=== PATIENT | female | born 1955 | race Caucasian/White ===

== ENCOUNTER 2017-03-30 09:13 | Day surgery (SDC) | payer OTHER ==
[~2017-03-30 09:13] MED LIST: Bupivacaine 0.5% 50 ML MDV ONE; Lidocaine 1% with EPINEPHrine 1:100,000 50 ML MDV ONE
[2017-03-30] MEDS ORDERED: Lactated Ringers 1,000 ML IV SCH (10:00)
[2017-03-30] MEDS ORDERED: Midazolam 1 MG/ML 2 ML SDV ONE (10:19)
[2017-03-30] MEDS ORDERED: Propofol 200 MG/20 ML SDV ONE (10:19)
[2017-03-30] MEDS ORDERED: fentaNYL 100 MCG/2 ML SDV ONE (10:19)
[2017-03-30] MEDS ORDERED: ceFAZolin 2 GM in Sodium Chloride 0.9% 50 ML IV ONE (10:30)
[2017-03-30] MEDS ORDERED: Dexamethasone 4 MG/ML SDV ONE (11:08)
[2017-03-30] MEDS ORDERED: Ondansetron 4 MG/2 ML SDV ONE (11:08)
[2017-03-30] MEDS ORDERED: Acetaminophen/HYDROcodone 325-5 MG Tab PO PRN (12:15)
[2017-03-30 13:29] VITALS: BP 142/92
[2017-03-30] MEDS ORDERED: Ondansetron 4 MG/2 ML SDV IVPUSH ONE (13:30)
--- NOTE | 2017-04-08 11:53 | OR ---
DATE OF PROCEDURE: 03/30/2017 PREOPERATIVE DIAGNOSIS: Left inguinal hernia, reducible. POSTOPERATIVE DIAGNOSIS: Direct left inguinal hernia, reducible. PROCEDURE: Repair of left inguinal hernia with an extra-large mesh plug and patch. ANESTHESIA: IV anesthesia with monitored anesthesia care. INDICATIONS: This 62-year-old white female has a reducible mass in her left groin consistent with a reducible left inguinal hernia. She is admitted for repair of this hernia. I counseled her for the procedure including risks and alternatives, and she gave her informed consent to proceed. DESCRIPTION OF PROCEDURE: After adequate IV anesthesia was obtained, the patient's lower abdomen, groin, and genitalia were prepped and draped in the usual sterile fashion. Time-out was held. Lidocaine 1% with 0.5% Marcaine with epinephrine was infiltrated about the left groin. A left groin incision was made 2 cm superior and medial to the inguinal ligament. This was carried deep using Bovie cautery to the external oblique. The external oblique was opened parallel to the course of its fibers to reveal that the inguinal floor was essentially gone consistent with a large direct left inguinal hernia. This was dissected free and reduced back into the abdominal cavity. An extra-large mesh plug manufactured by [employer] was obtained. The plug was passed down through the hernia defect under the fascia and anchored to the underside of the fascia with horizontal mattress stitches of 3-0 Vicryl. The onlay patch was obtained and was placed over the inguinal floor. The opening in the patch was excised, it was then anchored to the floor with interrupted 3-0 Vicryl suture. The external oblique was then closed with a running stitch of 3-0 Vicryl, interrupted 3-0 Vicryl stitch were placed to approximate Mena's fascia, 4-0 Vicryl using a subcuticular stitch was placed to approximate the skin. Dermabond was applied. The patient tolerated the procedure well and was brought from the operating room in good condition. Rolando García MD /[id number] [email or web address]
== END 2017-03-30 14:00 | disposition home or self-care (01) ==
LOC: JP.SDS 09:13
PROVIDERS: ATTEND Surgery
DX: K40.90 Unilateral inguinal hernia, without obstruction or gangrene, not specified as recurrent (principal)
CPT/HCPCS: 49505; A9270; C1781; J0690; J1100; J2250; J2405; J2704; J3010; J7050; J7120

== ENCOUNTER 2021-10-07 05:24 | Inpatient (IN) | payer MEDICARE, OTHER ==
[2021-10-07] MEDS ORDERED: Lactated Ringers 1,000 ML IV SCH (06:00)
[2021-10-07] MEDS: Nozin Nasal Sanitizer NASBOTH SCH ×2 (06:16→20:30)
[2021-10-07] MEDS ORDERED: Povidone-Iodine 10% Soln 118.25 ML Bottle ONE (06:45)
[2021-10-07] MEDS ORDERED: ceFAZolin 2 GM in Premix Bag 1 BAG IV ONE (07:30)
[2021-10-07] MEDS ORDERED: fentaNYL 100 MCG/2 ML SDV ONE ×2 (07:38→09:18)
[2021-10-07] MEDS ORDERED: Propofol 200 MG/20 ML SDV ONE ×2 (07:38→08:33)
[2021-10-07] MEDS ORDERED: Midazolam 1 MG/ML 2 ML SDV ONE (07:38)
[2021-10-07] MEDS ORDERED: Lactated Ringers 1,000 ML ONE (08:22)
[2021-10-07] MEDS ORDERED: traMADol 50 MG Tab PO PRN (09:41)
[2021-10-07] MEDS ORDERED: Morphine 2 MG/ML SYRINGE IVPUSH PRN (09:41)
[2021-10-07] MEDS: Ondansetron 4 MG/2 ML SDV IVPUSH PRN (10:42)
[2021-10-07] MEDS: Acetaminophen/HYDROcodone 325-5 MG Tab PO PRN ×2 (11:17→15:59)
[2021-10-07] MEDS: Acetaminophen 325 MG Tab PO SCH ×3 (11:17→23:16)
[2021-10-07] MEDS: Ketorolac 30 MG/ML SDV IVPUSH PRN ×2 (11:18→20:30)
[2021-10-07] MEDS ORDERED: Scopolamine 1.5 MG Transdermal Patch TOP SCH (12:00)
[2021-10-07] MEDS: Nicotine 14 MG/24 Hr Patch TRDERM SCH (12:10)
[2021-10-07] MEDS: Levothyroxine 25 MCG Tab PO SCH (12:11)
[2021-10-07] MEDS: Sertraline 50 MG Tab PO SCH (12:11)
[2021-10-07] MEDS: Sodium Chloride 0.9% 1,000 ML IV SCH ×2 (12:27→20:29)
[2021-10-07] MEDS: oxyCODONE 5 MG Tab PO PRN (12:45)
--- NOTE | 2021-10-07 13:36 | CR ---
Knee 1V or 2V Lt CLINICAL HISTORY: Previous TKA FINDINGS: Patient has had recent total knee arthroplasty. Components appear well seated. There is intra-articular and subcutaneous air.
[2021-10-07] MEDS: ceFAZolin 1 GM in Premix Bag 1 BAG IV SCH ×2 (14:38→23:13)
[2021-10-07] MEDS: Docusate Sodium 100 MG Cap PO SCH (20:24)
[2021-10-07] MEDS: atorvaSTATin 20 MG Tab PO SCH (20:30)
[2021-10-07] MEDS: ALPRAZolam 0.5 MG Tab PO PRN (20:30)
[2021-10-07] MEDS ORDERED: Nozin Nasal Sanitizer NASBOTH SCH (21:00)
[2021-10-08] MEDS: Ondansetron 4 MG/2 ML SDV IVPUSH PRN (02:49)
[2021-10-08] MEDS: Acetaminophen/HYDROcodone 325-5 MG Tab PO PRN (02:49)
[2021-10-08] MEDS: Acetaminophen 325 MG Tab PO SCH ×4 (05:59→22:54)
[2021-10-08] MEDS: ceFAZolin 1 GM in Premix Bag 1 BAG IV SCH (05:59)
[2021-10-08] MEDS: Ketorolac 30 MG/ML SDV IVPUSH PRN (06:03)
[2021-10-08] MEDS: Levothyroxine 25 MCG Tab PO SCH (07:38)
[2021-10-08] MEDS: oxyCODONE 5 MG Tab PO PRN ×4 (07:57→22:54)
[2021-10-08] MEDS: Nozin Nasal Sanitizer NASBOTH SCH ×2 (08:03→20:34)
[2021-10-08] MEDS: Nicotine 14 MG/24 Hr Patch TRDERM SCH (08:03)
[2021-10-08] MEDS: Sertraline 50 MG Tab PO SCH (08:04)
[2021-10-08] MEDS: Docusate Sodium 100 MG Cap PO SCH ×2 (08:04→20:53)
[2021-10-08] MEDS: SCOPOLAMINE PATCH CHECK TOP SCH (08:04)
[2021-10-08] MEDS: Enoxaparin 30 MG/0.3 ML Syringe SUBCUT SCH (08:04)
[2021-10-08] MEDS ORDERED: Ondansetron 4 MG Tab.DIS PO PRN (08:18)
[2021-10-08] MEDS ORDERED: Acetaminophen 500 MG Tab PO PRN (08:20)
--- NOTE | 2021-10-08 08:31 | PCM.SURGPN ---
- General Info Date of Service: 10/08/21 Date of Surgery/Procedure: 10/07/21 POD#: 1 Post-Op Diagnosis: left knee meniscus tear and osteoarthritis Admission Diagnosis/Problem: Knee joint operation Functional Status: Reports: Pain Controlled, Tolerating Diet, Ambulating (with FWW x1 assist ), Incentive Spirometry - Review of Systems General: Denies: Fever, Fatigue, Chills HEENT: Denies: Visual Changes Pulmonary: Denies: Shortness of Breath Cardiovascular: Denies: Chest Pain, Dyspnea on Exertion, Lightheadedness Gastrointestinal: Reports: Nausea. Denies: Vomiting Musculoskeletal: Reports: Leg Pain (left ), Joint Pain (left knee ), Joint Swelling (left knee ) Neurological: Reports: No Symptoms Psychiatric: Reports: No Symptoms - Patient Data Vitals - Most Recent: Last Vital Signs Temp 97.2 F 10/08/21 07:32 Pulse 70 10/08/21 07:32 Resp 16 10/08/21 07:32 BP 122/51 L 10/08/21 07:32 Pulse Ox 96 10/08/21 07:32 Weight - Most Recent: 142 lb I&O - Last 24 Hours: Intake & Output 10/07/21 10/08/21 10/08/21 22:59 06:59 14:59 Intake Total 1699 1320 100 Output Total 300 1000 275 Balance 1399 320 -175 Lab Results Last 24 Hrs: Laboratory Results - last 24 hr 10/08/21 Range/Units 05:30 WBC 8.5 (4.5-11.0) K/uL RBC 3.20 L (3.30-5.50) M/uL Hgb 9.8 L D (12.0-15.0) g/dL Hct 29.7 L (36.0-48.0) % MCV 93 (80-98) fL MCH 31 (27-31) pg MCHC 33 (32-36) % Plt Count 261 (150-400) K/uL Med Orders - Current: Current Medications Acetaminophen (Acetaminophen 325 Mg Tab) 650 mg PO Q6H [facility] Last Admin: 10/08/21 05:59 Dose: 650 mg Documented by: Acetaminophen (Acetaminophen 500 Mg Tab) 1,000 mg PO Q6H PRN PRN Reason: Breakthrough Pain Hydrocodone Bitart/Acetaminophen (Acetaminophen/Hydrocodone 325-5 Mg Tab) 1 tab PO Q4H PRN PRN Reason: Pain (moderate 4-6) Last Admin: 10/08/21 02:49 Dose: 1 tab Documented by: Alprazolam (Alprazolam 0.5 Mg Tab) 0.5 mg PO BID PRN PRN Reason: Anxiety Last Admin: 10/07/21 20:30 Dose: 0.5 mg Documented by: Atorvastatin Calcium (Atorvastatin 20 Mg Tab) 40 mg PO BEDTIME [facility] Last Admin: 10/07/21 20:30 Dose: 40 mg Documented by: Bandage/Support Products (Nozin Nasal Carpet Renovator) 1 applic NASBOTH BID [facility] Stop: 10/13/21 21:01 Last Admin: 10/08/21 08:03 Dose: 1 applic Documented by: Docusate Sodium (Docusate Sodium 100 Mg Cap) 100 mg PO BID [facility] Last Admin: 10/08/21 08:04 Dose: 100 mg Documented by: Enoxaparin Sodium (Enoxaparin 30 Mg/0.3 Ml Syringe) 30 mg SUBCUT DAILY [facility] Last Admin: 10/08/21 08:04 Dose: 30 mg Documented by: Sodium Chloride (Normal Saline) 1,000 mls @ 125 mls/hr IV ASDIRECTED [facility] Last Admin: 10/07/21 20:29 Dose: 125 mls/hr Documented by: Levothyroxine Sodium (Levothyroxine 25 Mcg Tab) 75 mcg PO ACBREAKFAST [facility] Last Admin: 10/08/21 07:38 Dose: 75 mcg Documented by: Miscellaneous Information (Remove Patch) 1 ea TRDERM ONETIME ONE Stop: 10/10/21 12:01 Nicotine (Nicotine 14 Mg/24 Hr Patch) 14 mg TRDERM DAILY [facility] Last Admin: 10/08/21 08:03 Dose: 14 mg Documented by: Scopolamine Patch (Check) 1 each TOP DAILY [facility] Stop: 10/10/21 10:00 Last Admin: 10/08/21 08:04 Dose: Not Given Documented by: Ondansetron HCl (Ondansetron 4 Mg Tab.Dis) 4 mg PO Q6H PRN PRN Reason: Nausea/Vomiting Oxycodone HCl (Oxycodone 5 Mg Tab) 5 mg PO Q4H PRN PRN Reason: Pain (severe 7-10) Last Admin: 10/08/21 07:57 Dose: 5 mg Documented by: Scopolamine (Scopolamine 1.5 Mg Transdermal Patch) 1.5 mg TOP Q72H [facility] Stop: 10/10/21 10:00 Last Admin: 10/07/21 12:10 Dose: 1.5 mg Documented by: Sertraline HCl (Sertraline 50 Mg Tab) 50 mg PO DAILY [facility] Last Admin: 10/08/21 08:04 Dose: 50 mg Documented by: Tramadol HCl (Tramadol 50 Mg Tab) 50 mg PO Q4H PRN PRN Reason: Pain (mild 1-3) Discontinued Medications Fentanyl (Fentanyl 100 Mcg/2 Ml Sdv) Confirm Administered Dose 100 mcg .ROUTE .STK-MED ONE Stop: 10/07/21 07:39 Fentanyl (Fentanyl 100 Mcg/2 Ml Sdv) Confirm Administered Dose 100 mcg .ROUTE .STK-MED ONE Stop: 10/07/21 09:19 Cefazolin Sodium/Dextrose 2 gm (/ Premix) 50 mls @ 100 mls/hr IV ONETIME ONE Stop: 10/07/21 07:59 Last Admin: 10/07/21 07:31 Dose: 100 mls/hr Documented by: Lactated Ringer's (Ringers, Lactated) 1,000 mls @ 75 mls/hr IV ASDIRECTED [facility] Last Admin: 10/07/21 07:14 Dose: 75 mls/hr Documented by: Lactated Ringer's (Ringers, Lactated) Confirm Administered Dose 1,000 mls @ as directed .ROUTE .STK-MED ONE Stop: 10/07/21 08:23 Cefazolin Sodium/Dextrose 1 gm (/ Premix) 50 mls @ 100 mls/hr IV Q8H [facility] Stop: 10/08/21 06:29 Last Admin: 10/08/21 05:59 Dose: 100 mls/hr Documented by: Ketorolac Tromethamine (Ketorolac 30 Mg/Ml Sdv) 15 mg IVPUSH Q8H PRN PRN Reason: Breakthrough Pain Stop: 10/12/21 09:42 Last Admin: 10/08/21 06:03 Dose: 15 mg Documented by: Midazolam HCl (Midazolam 1 Mg/Ml 2 Ml Sdv) Confirm Administered Dose 2 mg .ROUTE .STK-MED ONE Stop: 10/07/21 07:39 Morphine Sulfate (Morphine 2 Mg/Ml Syringe) 1 mg IVPUSH Q1H PRN PRN Reason: Breakthrough Pain Last Admin: 10/07/21 12:25 Dose: 1 mg Documented by: Ondansetron HCl (Ondansetron 4 Mg/2 Ml Sdv) 4 mg IVPUSH Q4H PRN PRN Reason: Nausea/Vomiting Last Admin: 10/08/21 02:49 Dose: 4 mg Documented by: Povidone Iodine (Povidone-Iodine 10% Soln 118.25 Ml Bottle) Confirm Administered Dose 1 ml .ROUTE .STK-MED ONE Stop: 10/07/21 06:46 Propofol (Propofol 200 Mg/20 Ml Sdv) Confirm Administered Dose 200 mg .ROUTE .STK-MED ONE Stop: 10/07/21 07:39 Propofol (Propofol 200 Mg/20 Ml Sdv) Confirm Administered Dose 200 mg .ROUTE .STK-MED ONE Stop: 10/07/21 08:34 Sertraline HCl (Sertraline 50 Mg Tab) 50 mg PO DAILY [facility] - Exam Wound/Incisions: Healing Well, Dressing Dry and Intact, No Drainage Quality Assessment: Urine Catheter, DVT Prophylaxis General: Alert, Oriented, Cooperative, No Acute Distress Extremities: Pedal Edema, Leg Pain (left ), Limited Range of Motion (due to left knee postoperative dressing and pain ). No: Yana's Sign Skin: Dry, Intact Neurological: No New Focal Deficit Psy/Mental Status: Alert, Normal Affect, Normal Mood Sepsis Event Note - Evaluation Sepsis Screening Result: No Definite Risk - Focused Exam Vital Signs: Vital Signs Temp Pulse Resp BP Pulse Ox 10/08/21 07:32 97.2 F 70 16 122/51 L 96 10/08/21 02:38 99.1 F 68 16 111/60 95 10/07/21 22:15 98.6 F 61 16 105/45 L 97 - Problem List & Annotations (1) Status post total left knee replacement SNOMED Code(s): 5972498206067, 9947281823274 Code(s): Z96.652 - PRESENCE OF LEFT ARTIFICIAL KNEE JOINT Status: Acute Current Visit: Yes (2) Postoperative anemia SNOMED Code(s): 487395508, 650433220 Code(s): D64.9 - ANEMIA, UNSPECIFIED Status: Acute Current Visit: Yes - Problem List Review Problem List Initiated/Reviewed/Updated: Yes - My Orders Last 24 Hours: Active Orders 24 hr Category Date Time Status Admission Status [Patient Status] [ADT] Routine ADT 10/08/21 08:21 Ordered Ambulate [RC] QID Care 10/07/21 09:41 Active Antiembolic Devices [RC] .Routine Care 10/07/21 09:41 Active Head of Bed Elevation [RC] ASDIRECTED Care 10/07/21 09:41 Active Intake and Output [RC] QSHIFT Care 10/07/21 09:41 Active May Shower [RC] ASDIRECTED Care 10/07/21 09:41 Active Neurovascular Check [RC] Q4H Care 10/07/21 09:41 Active Oxygen Therapy [RC] PRN Care 10/07/21 09:41 Active Pneumonia Education [RC] UPON Care 10/07/21 09:41 Active RT Incentive Spirometry [RC] Q1HWA Care 10/07/21 09:41 Active Up to Chair [RC] QID Care 10/07/21 09:41 Active Up to Chair [RC] QID Care 10/07/21 09:41 Active VTE/DVT Education [RC] Click to Edit Care 10/07/21 09:41 Active Vital Signs [RC] PER UNIT ROUTINE Care 10/07/21 09:41 Active Wound Care [RC] Q12H Care 10/07/21 09:41 Active Consult to Case Management/Brass [employer] Instrument Maker [CONS] Cons 10/07/21 09:41 Active Routine OT Evaluation and Treatment [CONS] Routine Cons 10/07/21 09:41 Active PT Evaluation and Treatment [CONS] Routine Cons 10/07/21 09:41 Active PT Evaluation and Treatment [CONS] Routine Cons 10/07/21 09:41 Active Regular Diet [DIET] Diet 10/07/21 Breakfast Active ALPRAZolam [Xanax] Med 10/07/21 09:47 Active 0.5 mg PO BID PRN Acetaminophen [TylenoL] Med 10/07/21 11:00 Active 650 mg PO Q6H Acetaminophen [Tylenol Extra Strength] Med 10/08/21 08:20 Ordered 1,000 mg PO Q6H PRN Acetaminophen/HYDROcodone [[place] 325-5 MG] Med 10/07/21 09:46 Active 1 tab PO Q4H PRN Docusate Sodium [Colace] Med 10/07/21 21:00 Active 100 mg PO BID Enoxaparin [Lovenox] Med 10/08/21 09:00 Active 30 mg SUBCUT DAILY Levothyroxine Med 10/07/21 12:00 Active 75 mcg PO ACBREAKFAST Nicotine [Habitrol] Med 10/07/21 12:00 Active 14 mg TRDERM DAILY Non-Formulary Medication [NF Drug] Med 10/08/21 09:00 Active 1 each TOP DAILY Ondansetron [Zofran ODT] Med 10/08/21 08:18 Ordered 4 mg PO Q6H PRN Remove Patch Med 10/10/21 12:00 Once 1 ea TRDERM ONETIME ONE Scopolamine [Transderm-Scop] Med 10/07/21 12:00 Active 1.5 mg TOP Q72H Sertraline [Zoloft] Med 10/07/21 09:00 Active 50 mg PO DAILY Sodium Chloride 0.9% [Normal Saline] 1,000 ml Med 10/07/21 09:45 Active IV ASDIRECTED atorvaSTATin [Lipitor] Med 10/07/21 21:00 Active 40 mg PO BEDTIME oxyCODONE Med 10/07/21 09:45 Active 5 mg PO Q4H PRN traMADol [Ultram] Med 10/07/21 09:41 Active 50 mg PO Q4H PRN Antiembolic Hose [OM.PC] Routine Oth 10/07/21 09:41 Ordered DVT/VTE Prophylaxis Reflex [OM.PC] Routine Oth 10/07/21 09:41 Ordered Ice Therapy [OM.PC] Per Unit Routine Oth 10/07/21 09:41 Ordered Medication Continuation Instructions [OM.PC] Per Unit Oth 10/07/21 09:41 Ordered Routine Oral Care [OM.PC] Routine Oth 10/07/21 09:41 Ordered Sequential Compression Device [OM.PC] Routine Oth 10/07/21 09:41 Ordered Weight bearing status [OM.PC] Routine Oth 10/07/21 09:48 Ordered Resuscitation Status Routine Resus Stat 10/07/21 09:41 Ordered Medication Orders Acetaminophen (Acetaminophen 325 Mg Tab) 650 mg PO Q6H [facility] Last Admin: 10/08/21 05:59 Dose: 650 mg Documented by: Admin: 10/07/21 23:16 Dose: Not Given Documented by: Admin: 10/07/21 16:00 Dose: 650 mg Documented by: Admin: 10/07/21 11:17 Dose: 650 mg Documented by: [email or web address] Acetaminophen (Acetaminophen 500 Mg Tab) 1,000 mg PO Q6H PRN PRN Reason: Breakthrough Pain Hydrocodone Bitart/Acetaminophen (Acetaminophen/Hydrocodone 325-5 Mg Tab) 1 tab PO Q4H PRN PRN Reason: Pain (moderate 4-6) Last Admin: 10/08/21 02:49 Dose: 1 tab Documented by: Admin: 10/07/21 15:59 Dose: 1 tab Documented by: Admin: 10/07/21 11:17 Dose: 1 tab Documented by: [email or web address] Alprazolam (Alprazolam 0.5 Mg Tab) 0.5 mg PO BID PRN PRN Reason: Anxiety Last Admin: 10/07/21 20:30 Dose: 0.5 mg Documented by: [place] Atorvastatin Calcium (Atorvastatin 20 Mg Tab) 40 mg PO BEDTIME [facility] Last Admin: 10/07/21 20:30 Dose: 40 mg Documented by: [place] Bandage/Support Products (Nozin Nasal Carpet Renovator) 1 applic NASBOTH BID [facility] Stop: 10/13/21 21:01 Last Admin: 10/08/21 08:03 Dose: 1 applic Documented by: Admin: 10/07/21 20:30 Dose: 1 applic Documented by: Admin: 10/07/21 06:16 Dose: 1 applic Documented by: [place] Docusate Sodium (Docusate Sodium 100 Mg Cap) 100 mg PO BID [facility] Last Admin: 10/08/21 08:04 Dose: 100 mg Documented by: Admin: 10/07/21 20:24 Dose: Not Given Documented by: [place] Enoxaparin Sodium (Enoxaparin 30 Mg/0.3 Ml Syringe) 30 mg SUBCUT DAILY [facility] Last Admin: 10/08/21 08:04 Dose: 30 mg Documented by: [email or web address] Sodium Chloride (Normal Saline) 1,000 mls @ 125 mls/hr IV ASDIRECTED [facility] Last Admin: 10/07/21 20:29 Dose: 125 mls/hr Documented by: Infusion: 10/07/21 20:27 Dose: 125 mls/hr Documented by: Admin: 10/07/21 12:27 Dose: 125 mls/hr Documented by: [email or web address] Levothyroxine Sodium (Levothyroxine 25 Mcg Tab) 75 mcg PO ACBREAKFAST [facility] Last Admin: 10/08/21 07:38 Dose: 75 mcg Documented by: Admin: 10/07/21 12:11 Dose: 75 mcg Documented by: [email or web address] Miscellaneous Information (Remove Patch) 1 ea TRDERM ONETIME ONE Stop: 10/10/21 12:01 Nicotine (Nicotine 14 Mg/24 Hr Patch) 14 mg TRDERM DAILY [facility] Last Admin: 10/08/21 08:03 Dose: 14 mg Documented by: Admin: 10/07/21 12:10 Dose: 14 mg Documented by: [email or web address] Scopolamine Patch (Check) 1 each TOP DAILY [facility] Stop: 10/10/21 10:00 Last Admin: 10/08/21 08:04 Dose: Not Given Documented by: [email or web address] Ondansetron HCl (Ondansetron 4 Mg Tab.Dis) 4 mg PO Q6H PRN PRN Reason: Nausea/Vomiting Oxycodone HCl (Oxycodone 5 Mg Tab) 5 mg PO Q4H PRN PRN Reason: Pain (severe 7-10) Last Admin: 10/08/21 07:57 Dose: 5 mg Documented by: Admin: 10/07/21 12:45 Dose: 5 mg Documented by: [email or web address] Scopolamine (Scopolamine 1.5 Mg Transdermal Patch) 1.5 mg TOP Q72H [facility] Stop: 10/10/21 10:00 Last Admin: 10/07/21 12:10 Dose: 1.5 mg Documented by: [email or web address] Sertraline HCl (Sertraline 50 Mg Tab) 50 mg PO DAILY [facility] Last Admin: 10/08/21 08:04 Dose: 50 mg Documented by: Admin: 10/07/21 12:11 Dose: 50 mg Documented by: [email or web address] Tramadol HCl (Tramadol 50 Mg Tab) 50 mg PO Q4H PRN PRN Reason: Pain (mild 1-3) - Assessment Assessment (Free Text/Narrative):: Patient is a pleasant 66-year-old female, status post left total knee arthroplasty, postop day #1. Patient tolerated surgery well with no complications. No acute events overnight. Patient has remained hemodynamically stable thus far in the postoperative period. Hemoglobin declined to 9.8; patient has been asymptomatic with this. Denied lightheadedness with transfers, vision changes, nor lightheadedness. Patient also denied subjective fevers and chills. Pain has been well controlled thus far with combination of oral and IV medications. Endorsed nausea after surgery; has had good relief with scopolamine patch and zofran prn. Tolerating regular diet well without emesis. Patient has been compliant with physical therapy services. Ambulating with four-wheel walker and x1 assist in her room. Has been transferring from bed to chair with a x1 assist with lifting left leg. Has not yet worked on stairs; she does have two stairs at home to complete. Patient requires inpatient services at this time for monitoring of postoperative anemia, transition to oral pain medications, and for additional physical therapy services to progress functional mobility of left lower extremity and to work on stairs prior to discharge home. Exam: L tibial pulse, 2+. Sensation to LLE intact. Moderate left pedal edema. JOSE MANUEL wrap dressing dry and intact on left knee. Limited ROM at knee from bulky dressing. Calf is full, but non-tender to palpation. Negative homans sign. Plan: * Patient to comply with daily physical and occupational therapy services to progress functional mobility of left lower extremity. * Postoperative anemia stable at this time. We will continue to monitor for symptoms and recheck CBC if patient does become symptomatic. * IV malfunctioned this morning. Patient had already completed 24-hour post- operative IV antibiotic coverage. Discontinued IV maintenance fluids. Updated medication orders to all oral and subcutaneous administrations. * Continue with 30 mg Lovenox subcutaneous daily for chemical DVT/VTE prophylaxis. Continue with bilateral lower extremity SCDs for mechanical DVT/VTE prophylaxis. * Communication provided to nurses to remove [place] catheter this morning. * Anticipate dressing change on postop day #2 by orthopedic provider. * Anticipate discharge to home with outpatient physical therapy services when patient is medically stable and functional mobility of left lower extremity improves.
[2021-10-08] MEDS ORDERED: Sertraline 50 MG Tab PO SCH (09:00)
[2021-10-08] MEDS: ALPRAZolam 0.5 MG Tab PO PRN (20:34)
[2021-10-08] MEDS: atorvaSTATin 20 MG Tab PO SCH (20:34)
[2021-10-09] MEDS: Acetaminophen 325 MG Tab PO SCH ×2 (04:22→11:01)
[2021-10-09] MEDS: oxyCODONE 5 MG Tab PO PRN ×2 (04:22→08:34)
[2021-10-09] MEDS: Docusate Sodium 100 MG Cap PO SCH (08:21)
[2021-10-09] MEDS: Nozin Nasal Sanitizer NASBOTH SCH (08:23)
[2021-10-09] MEDS: Levothyroxine 25 MCG Tab PO SCH (08:24)
[2021-10-09] MEDS: Sertraline 50 MG Tab PO SCH (08:25)
[2021-10-09] MEDS: Enoxaparin 30 MG/0.3 ML Syringe SUBCUT SCH (08:25)
[2021-10-09] MEDS: SCOPOLAMINE PATCH CHECK TOP SCH (08:25)
[2021-10-09] MEDS: Nicotine 14 MG/24 Hr Patch TRDERM SCH (08:26)
--- NOTE | 2021-10-09 11:01 | PCM.DCSUM1 ---
Discharge Summary - Hospital Course HPI Initial Comments: Carlitos 66 y/o female with left knee osteoarthritis and large meniscal tear with symptoms refractory to conservative management. Elected to undergo total knee arthroplasty. Left total knee arthroplasty performed on 10/07/21. Patient tolerated surgery well with no complications. No acute events in the post- operative period. Diagnosis: Stroke: No Modified [place] Scale: No Symptoms at All Modified [place] Scale Score: 0 - Discharge Data Discharge Date: 10/09/21 Discharge Disposition: Home, Self-Care 01 Condition: Good - Referral to Home Health Date of Face to Face Encounter: 10/09/21 Primary Care Physician: CLYDE Britton - Discharge Diagnosis/Problem(s) (1) Status post total left knee replacement SNOMED Code(s): 4064258998531, [id number] ICD Code: Z96.652 - PRESENCE OF LEFT ARTIFICIAL KNEE JOINT Status: Acute Current Visit: Yes (2) Postoperative anemia SNOMED Code(s): 140945366, [id number] ICD Code: D64.9 - ANEMIA, UNSPECIFIED Status: Acute Current Visit: Yes - Patient Summary/Data Operative Procedure(s) Performed: left total knee arthroplasty Consults: Consultations 10/07/21 09:41 Consult to Case Management/Associate Accountant [CONS] Routine Comment: Physician Instructions: Service(s) to be Consulted: Case Management Reason for Consult: Plan for Discharge Special Instructions: s/p LTKA. Anticipate dc to home with home health when medically stable OT Evaluation and Treatment [CONS] Routine Please Evaluate and Treat. OT Reason for Consult: ADL's Special Instructions: s/p LTKA. WBAT This query below is only for informational purposes and is not editable. PT Evaluation and Treatment [CONS] Routine Please Evaluate and Treat. PT Reason for Consult: Post op Ortho Surgery Special Instructions: s/p LTKA. WBAT. Progress ROM, strengthening & functional mobility to LLE This query below is only for informational purposes and is not editable. PT Evaluation and Treatment [CONS] Routine Please Evaluate and Treat. PT Reason for Consult: Post op Ortho Surgery Knee Pending Discharge: Yes, 1- 2 days Special Instructions: Schedule first outpatient PT appointment in 3-5 day post discharge. This query below is only for informational purposes and is not editable. Hospital Course: Carlitos 66 y/o female, s/p left total knee arthroplasty, POD#2. Patient tolerated surgery well with no complications. Patient remained hemodynamically stable in the post-operative period and had no acute events during hospitalization. Systolic pressures fluctuated between 120-100s. POD#1 HgB declined to 9.8, patient was relatively asymptomatic with this. Denied lightheadedness with ambulation or positional changes, vision changes, nor shortness of breath. Patient also denied subjective fevers, chills, chest pain, and fatigue. Pain was well controlled with oral medications over the past 24 hours. Patient did experience nausea during the post-operative period, although it appeared to correlate with activity, rather than with the pain medication. Nausea did resolve by POD#2. Did have diminished appetite POD#1, otherwise tolerated regular diet well without emesis. Patient was compliant with physical therapy twice daily. Ambulation abilities progressed nicely, ambulating up to 150 ft with FWW. Patient is able to transfer from bed to chair with FWW. Does require assistance with lifting left leg into and out of bed. Patient able to complete ADLs with minimal assistance. POD#1, IV maintenance fluids were discontinued, goldberg catheter remove, and dressing change performed. Patient demonstrated improved functional mobility of left lower extremity throughout stay. Asymptomatic with postoperative anemia and hemodynamically stable at time of discharge. Final BP reading prior to discharge was 128/54. Patient discharging to home with outpatient physical therapy services arranged. Will have support from spouse at home. - Patient Instructions Diet: Usual Diet as Tolerated Activity: Apply Ice, Full Weight Bearing, Rest and Relax Today Driving: Do Not Drive Showering/Bathing: May Shower Wound/Incision Care: Keep Operative Site/Wound Site Clean and Dry, Change Dressing Daily Notify Provider of: Fever, Increased Pain, Swelling and Redness, Drainage - Discharge Plan *PRESCRIPTION DRUG MONITORING PROGRAM REVIEWED*: Yes *COPY OF PRESCRIPTION DRUG MONITORING REPORT IN PATIENT LUIZ: Not Applicable Prescriptions/Med Rec: oxyCODONE 5 mg PO Q6HR PRN #35 tab PRN Reason: Pain (Severe 7-10) Home Medications: Home Meds Levothyroxine 75 mcg PO ACBREAKFAST 08/05/15 [History] Simvastatin 80 mg PO BEDTIME 08/05/15 [History] ALPRAZolam [Alprazolam] 0.5 mg PO BID PRN 04/27/20 [History] Sertraline [Zoloft] 50 mg PO DAILY 04/27/20 [History] Diclofenac Sodium [Voltaren 1% Gel] 1 applic TOP QID PRN 10/07/21 [History] oxyCODONE 5 mg PO Q6HR PRN #35 tab 10/09/21 [Rx] Oxygen Therapy Mode: Room Air Patient Handouts: Fall Prevention in the Home, Adult, [id number], Total Knee Replacement, Care After, Ampt-sc-Dssw, Preventing Problems After Surgery, How to Prevent Constipation After Surgery Referrals: Tamara Gomez, PT [Physical Therapist] - 10/14/21 10:30 am (Please arrive 15 minutes early to register for your appointment.) Radha Prieto PA [Ordering Only Provider] - 10/22/21 1:30 pm (Please arrive 15 minutes early to register for your appointment) - Discharge Summary/Plan Comment DC Time >30 min.: No Total # of Minutes for Discharge Time: 20 Discharge Summary/Plan Comment: -Discharge to home today with outpatient PT. -Patient to be fitted with walker from PT services for home usage. -Prescription sent for pain control: 5mg oxycodone, 1 tab PO q6 hrs prn for pain. May resume Celebrex and also use Tylenol as needed for breakthrough pain. -Encouraged continuation of stool softener while on opioid pain medication. -Educated to take 1 aspirin BID for DVT/VTE prophylaxis. -Educated patient on warning signs of DVT/VTE and SSI; any concerns, should contact the clinic or visit local ER. -Continue with Nozin spray BID. -Continue using incentive spirometer TID for the following week. -May shower; leave Steristrips on and let water run over the top. They will fall off in 5-7 days. Do not vigorously scrub incision, no submerging incision in bath water. -Follow up with orthopedics in 2 weeks; contact clinic with any concerns or questions that arise prior to scheduled apt - General Info Functional Status: Reports: Pain Controlled, Tolerating Diet, Ambulating (with FWW ), Urinating, Incentive Spirometry - Review of Systems General: Denies: Fever, Fatigue, Chills HEENT: Denies: Visual Changes Pulmonary: Denies: Shortness of Breath Cardiovascular: Denies: Chest Pain, Palpitations Gastrointestinal: Denies: Nausea, Vomiting Musculoskeletal: Reports: Leg Pain (left ), Joint Pain (left knee ), Joint Swelling (left knee ) Skin: Reports: Bruising Neurological: Reports: No Symptoms Psychiatric: Reports: No Symptoms - Patient Data Vitals - Most Recent: Last Vital Signs Temp 96.9 F 10/09/21 08:19 Pulse 75 10/09/21 08:19 Resp 18 10/09/21 08:19 BP 105/36 L 10/09/21 08:19 Pulse Ox 99 10/09/21 08:19 Weight - Most Recent: 142 lb I&O - Last 24 hours: Intake & Output 10/08/21 10/09/21 10/09/21 22:59 06:59 14:59 Intake Total 1100 850 Balance 1100 850 Med Orders - Current: Current Medications Acetaminophen (Acetaminophen 325 Mg Tab) 650 mg PO Q6H [facility] Last Admin: 10/09/21 04:22 Dose: 650 mg Documented by: Acetaminophen (Acetaminophen 500 Mg Tab) 1,000 mg PO Q6H PRN PRN Reason: Breakthrough Pain Hydrocodone Bitart/Acetaminophen (Acetaminophen/Hydrocodone 325-5 Mg Tab) 1 tab PO Q4H PRN PRN Reason: Pain (moderate 4-6) Last Admin: 10/08/21 02:49 Dose: 1 tab Documented by: Alprazolam (Alprazolam 0.5 Mg Tab) 0.5 mg PO BID PRN PRN Reason: Anxiety Last Admin: 10/08/21 20:34 Dose: 0.5 mg Documented by: Atorvastatin Calcium (Atorvastatin 20 Mg Tab) 40 mg PO BEDTIME [facility] Last Admin: 10/08/21 20:34 Dose: 40 mg Documented by: Bandage/Support Products (Nozin Nasal Certified Fire Investigator) 1 applic NASBOTH BID [facility] Stop: 10/13/21 21:01 Last Admin: 10/09/21 08:23 Dose: 1 applic Documented by: Docusate Sodium (Docusate Sodium 100 Mg Cap) 100 mg PO BID [facility] Last Admin: 10/09/21 08:21 Dose: Not Given Documented by: Enoxaparin Sodium (Enoxaparin 30 Mg/0.3 Ml Syringe) 30 mg SUBCUT DAILY [facility] Last Admin: 10/09/21 08:25 Dose: 30 mg Documented by: Levothyroxine Sodium (Levothyroxine 25 Mcg Tab) 75 mcg PO ACBREAKFAST [facility] Last Admin: 10/09/21 08:24 Dose: 75 mcg Documented by: Miscellaneous Information (Remove Patch) 1 ea TRDERM ONETIME ONE Stop: 10/10/21 12:01 Nicotine (Nicotine 14 Mg/24 Hr Patch) 14 mg TRDERM DAILY [facility] Last Admin: 10/09/21 08:26 Dose: 14 mg Documented by: Scopolamine Patch (Check) 1 each TOP DAILY [facility] Stop: 10/10/21 10:00 Last Admin: 10/09/21 08:25 Dose: Not Given Documented by: Ondansetron HCl (Ondansetron 4 Mg Tab.Dis) 4 mg PO Q6H PRN PRN Reason: Nausea/Vomiting Oxycodone HCl (Oxycodone 5 Mg Tab) 5 mg PO Q4H PRN PRN Reason: Pain (severe 7-10) Last Admin: 10/09/21 08:34 Dose: 5 mg Documented by: Scopolamine (Scopolamine 1.5 Mg Transdermal Patch) 1.5 mg TOP Q72H [facility] Stop: 10/10/21 10:00 Last Admin: 10/07/21 12:10 Dose: 1.5 mg Documented by: Sertraline HCl (Sertraline 50 Mg Tab) 50 mg PO DAILY [facility] Last Admin: 10/09/21 08:25 Dose: 50 mg Documented by: Tramadol HCl (Tramadol 50 Mg Tab) 50 mg PO Q4H PRN PRN Reason: Pain (mild 1-3) Last Admin: 10/08/21 14:27 Dose: 50 mg Documented by: Discontinued Medications Fentanyl (Fentanyl 100 Mcg/2 Ml Sdv) Confirm Administered Dose 100 mcg .ROUTE .STK-MED ONE Stop: 10/07/21 07:39 Fentanyl (Fentanyl 100 Mcg/2 Ml Sdv) Confirm Administered Dose 100 mcg .ROUTE .STK-MED ONE Stop: 10/07/21 09:19 Cefazolin Sodium/Dextrose 2 gm (/ Premix) 50 mls @ 100 mls/hr IV ONETIME ONE Stop: 10/07/21 07:59 Last Admin: 10/07/21 07:31 Dose: 100 mls/hr Documented by: Lactated Ringer's (Ringers, Lactated) 1,000 mls @ 75 mls/hr IV ASDIRECTED [facility] Last Admin: 10/07/21 07:14 Dose: 75 mls/hr Documented by: Lactated Ringer's (Ringers, Lactated) Confirm Administered Dose 1,000 mls @ as directed .ROUTE .STK-MED ONE Stop: 10/07/21 08:23 Sodium Chloride (Normal Saline) 1,000 mls @ 125 mls/hr IV ASDIRECTED [facility] Last Admin: 10/07/21 20:29 Dose: 125 mls/hr Documented by: Cefazolin Sodium/Dextrose 1 gm (/ Premix) 50 mls @ 100 mls/hr IV Q8H [facility] Stop: 10/08/21 06:29 Last Admin: 10/08/21 05:59 Dose: 100 mls/hr Documented by: Ketorolac Tromethamine (Ketorolac 30 Mg/Ml Sdv) 15 mg IVPUSH Q8H PRN PRN Reason: Breakthrough Pain Stop: 10/12/21 09:42 Last Admin: 10/08/21 06:03 Dose: 15 mg Documented by: Midazolam HCl (Midazolam 1 Mg/Ml 2 Ml Sdv) Confirm Administered Dose 2 mg .ROUTE .STK-MED ONE Stop: 10/07/21 07:39 Morphine Sulfate (Morphine 2 Mg/Ml Syringe) 1 mg IVPUSH Q1H PRN PRN Reason: Breakthrough Pain Last Admin: 10/07/21 12:25 Dose: 1 mg Documented by: Ondansetron HCl (Ondansetron 4 Mg/2 Ml Sdv) 4 mg IVPUSH Q4H PRN PRN Reason: Nausea/Vomiting Last Admin: 10/08/21 02:49 Dose: 4 mg Documented by: Povidone Iodine (Povidone-Iodine 10% Soln 118.25 Ml Bottle) Confirm Administered Dose 1 ml .ROUTE .STK-MED ONE Stop: 10/07/21 06:46 Propofol (Propofol 200 Mg/20 Ml Sdv) Confirm Administered Dose 200 mg .ROUTE .STK-MED ONE Stop: 10/07/21 07:39 Propofol (Propofol 200 Mg/20 Ml Sdv) Confirm Administered Dose 200 mg .ROUTE .STK-MED ONE Stop: 10/07/21 08:34 Sertraline HCl (Sertraline 50 Mg Tab) 50 mg PO DAILY [facility] - Exam Quality Assessment: Reports: DVT Prophylaxis General: Reports: Alert, Oriented, Cooperative, No Acute Distress Extremities: Normal Capillary Refill, Pedal Edema, Joint Swelling, Leg Pain (left ), Limited Range of Motion (from postoperative swelling and pain ), Increased Warmth. No: Yana's Sign Skin: Reports: Warm, Dry, Intact, Ecchymosis Wound/Incisions: Reports: Healing Well, Dressing Dry and Intact, No Drainage Neurological: Reports: No New Focal Deficit Psy/Mental Status: Reports: Alert, Normal Affect, Normal Mood
[2021-10-09 12:07] VITALS: BP 79/50; PULSE 68
--- NOTE | 2021-10-11 11:02 | OR ---
DATE OF PROCEDURE: 10/07/2021 SURGEON: Hema Romero MD PREOPERATIVE DIAGNOSIS: Osteoarthritis, left knee. POSTOPERATIVE DIAGNOSIS: Osteoarthritis, left knee. PROCEDURE: Left total knee arthroplasty using [employer] components with a size 7 femur, D tibia, 12 mm polyethylene, and 32 mm patella. AUTOMATIC HEMMER: CLYDE Lou ANESTHESIA: Spinal with sedation. INDICATIONS: Dasia is a 66-year-old female with a history of progressive pain in her left knee over the past year. She has had a previous arthroscopy with partial meniscectomy and chondroplasty, now experiencing increasing pain. X-rays show only mild to moderate degenerative changes other than a small exostosis in the medial femoral condyle, thought to be due to some overgrowth from the chondroplasty. Her MRI, however, shows significant articular cartilage damage in the lateral compartment as well as well as meniscus tear. She therefore presents for a total knee arthroplasty. Risks, benefits, potential complications of the procedure were discussed. DESCRIPTION OF PROCEDURE: After adequate anesthesia was obtained, the patient was placed supine with a tourniquet about the left upper thigh. Left leg was prepped and draped in a sterile fashion, leg was exsanguinated, and tourniquet inflated to 250 mmHg. A longitudinal incision was made over the anterior aspect of the knee and carried down through the subcutaneous tissues. Medial parapatellar arthrotomy was performed with a small to moderate effusion present. Patella was partially everted. Soft tissues were cleared from the periphery of the patella and the patella showed areas of full-thickness cartilage loss. Oscillating saw was used to remove posterior portion of the patella. Anterior horn of the medial meniscus was excised and a medial release was performed. The patella was subluxed and the knee was flexed. This revealed an area of fibrocartilage and the exostosis overgrowth as noted on MRI and x-ray of the medial femoral condyle. Articular flaps were noted in the lateral compartment. Intramedullary canal was drilled and the guide was placed and distal femoral cut was made. Extramedullary tibial jig was placed. Proximal tibia was resected. This portion was removed and the remaining menisci were excised. Attention was returned to the femur, which was sized to a 7 component. A cutting block was secured and remaining cuts were made. Trial femoral component was placed and the intercondylar notch was cut for a posterior cruciate-sacrificing component. Tibia was trialed with a 10 mm insert and found to be too tight in both flexion and extension and cutting jig was replaced over the pins, which had been preserved for an additional 4 mm cut. Tibia was sized and the tibial tray was secured with 2 pins. Center was drilled and pins were punched. The trials were then placed, knee taken through range of motion with a 10 mm insert fitting easily with a slight laxity. The patella was resurfaced with a 32 mm button and this tracked very well. All trials were removed. The knee was thoroughly irrigated with pulse lavage. The bone surfaces were dried and components were cemented in place. Excess cement was removed. The knee was held in full extension with a 10 mm trial as the cement cured. Once the cement was set, knee was again taken through range of motion showing excellent tracking of the patella, but slight laxity. Additional trials with an 11 and 12 mm spacer showed the 12 mm spacer to provide good balance in flexion and extension. The trial was removed, the knee was irrigated, and the final polyethylene was snapped into position. The knee was irrigated once again with pulse lavage. This was followed by a dilute Betadine irrigation, which was left in place for 2- 1/2 minutes, and then irrigated with pulse lavage again. The tourniquet was deflated and bleeding was controlled with electrocautery. Knee was then closed with #2 Ethibond in interrupted fashion in the capsular layer. Skin was closed with 2-0 Vicryl and a running 3- 0 Monocryl. Steri-Strips were applied. Light compressive dressing was then placed. The patient tolerated the procedure well with no complications, taken from the operating room in stable condition. Hema Romero MD /[id number]
== END 2021-10-09 14:15 | disposition home or self-care (01) | DRG 470 ==
LOC: JP.SDS 05:24 → JP.MS 09:41 → JP.SDS 10-08 08:21
PROVIDERS: ADMIT Specialist; ATTEND Specialist
PROC: 0SRD0J9 Replacement of Left Knee Joint with Synthetic Substitute, Cemented, Open Approach (ICD-10-PCS; principal; 2021-10-07)
DX: M17.12 Unilateral primary osteoarthritis, left knee (principal); D64.9 Anemia, unspecified; E78.5 Hyperlipidemia, unspecified; I10 Essential (primary) hypertension; F17.210 Nicotine dependence, cigarettes, uncomplicated; Z79.890 Hormone replacement therapy; Z79.899 Other long term (current) drug therapy; Z88.1 Allergy status to other antibiotic agents; Z88.5 Allergy status to narcotic agent; M23.201 Derangement of unspecified lateral meniscus due to old tear or injury, left knee
CPT/HCPCS: 36415; 73560-26-LT; 73560-LT; 80053; 85027; 86850; 86900; 86901; 97110-GP; 97116-GP; 97161-GP; 97165-GO; 97530-GP; 97535-GP; A9270-GY; C1713; C1776; J0690; J1650; J1885; J2250; J2270; J2405; J2704; J3010; J7030; J7120

== ENCOUNTER → 2022-10-08 | Day surgery (SDC) | payer MEDICARE, OTHER ==
[~2022-10-08] MED LIST changes: +Bupivacaine 0.5% 30 ML SDV ONE; -Bupivacaine 0.5% 50 ML MDV ONE; +Dexamethasone 4 MG/ML SDV ONE; +Ketorolac 30 MG/ML SDV ONE; +Lactated Ringers 1,000 ML IV SCH; -Lidocaine 1% with EPINEPHrine 1:100,000 50 ML MDV ONE; +Midazolam 1 MG/ML 2 ML SDV ONE; +Nozin Nasal Sanitizer NASBOTH ONE; +Ondansetron 4 MG/2 ML SDV ONE; +Propofol 200 MG/20 ML SDV ONE; +ceFAZolin 2 GM in Sodium Chloride 0.9% 50 ML IV ONE; +fentaNYL 100 MCG/2 ML SDV ONE; +traMADol 50 MG Tab PO ONE
[2022-10-08 06:26] LABS: ESTIMATED GFR 81 mL/min (>60)
[2022-10-08 10:11] VITALS: BP 135/64; PULSE 60
== END ==
LOC: JP.SDS 05:27
PROVIDERS: ATTEND Specialist
DX: M65.862 Other synovitis and tenosynovitis, left lower leg (principal); E03.9 Hypothyroidism, unspecified; I10 Essential (primary) hypertension; E04.2 Nontoxic multinodular goiter; K21.9 Gastro-esophageal reflux disease without esophagitis; F17.210 Nicotine dependence, cigarettes, uncomplicated; E78.2 Mixed hyperlipidemia; Z79.899 Other long term (current) drug therapy; Z98.890 Other specified postprocedural states; Z88.5 Allergy status to narcotic agent; Z88.8 Allergy status to other drugs, medicaments and biological substances; Z79.890 Hormone replacement therapy
CPT/HCPCS: 29875; 36415; 80053; 85027; A9270; J0690; J1100; J1885; J2250; J2405; J2704; J3010; J3490; J7120

== ENCOUNTER 2022-12-20 09:38 | Emergency (ER) | payer MEDICARE, OTHER ==
[2022-12-20] MEDS ORDERED: Ondansetron 4 MG Tab.DIS PO ONE (10:42)
[2022-12-20] MEDS ORDERED: Ketorolac 15 MG/ML SDV IM ONE (10:42)
[2022-12-20 11:09] VITALS: PULSE 76
[2022-12-20 11:34] VITALS: BP 137/89
== END 2022-12-20 12:21 | disposition home or self-care (01) ==
LOC: JP.ED 09:38
DX: N20.1 Calculus of ureter (principal); R91.1 Solitary pulmonary nodule; R31.29 Other microscopic hematuria; E03.9 Hypothyroidism, unspecified; Z88.5 Allergy status to narcotic agent; Z88.8 Allergy status to other drugs, medicaments and biological substances; Z79.899 Other long term (current) drug therapy; Z86.16 Personal history of COVID-19; Z72.0 Tobacco use
CPT/HCPCS: 74176; 81001; 96372; 99283; 99284; J1885; Q0162

== ENCOUNTER 2023-10-02 08:04 | Day surgery (SDC) | payer MEDICARE, OTHER ==
[2023-10-02] MEDS ORDERED: Midazolam 1 MG/ML 2 ML SDV ONE (08:38)
[2023-10-02] MEDS ORDERED: Propofol 200 MG/20 ML SDV ONE (08:38)
[2023-10-02] MEDS ORDERED: fentaNYL 50 MCG/ML SDV ONE (08:38)
[2023-10-02] MEDS ORDERED: Lactated Ringers 1,000 ML IV SCH (08:45)
[2023-10-02 11:05] VITALS: BP 120/45; PULSE 57
== END 2023-10-02 11:09 | disposition home or self-care (01) ==
LOC: JP.SDS 08:04
PROVIDERS: ATTEND Student in an Organized Health Care Education/Training Program
DX: K29.50 Unspecified chronic gastritis without bleeding (principal); K44.9 Diaphragmatic hernia without obstruction or gangrene; I10 Essential (primary) hypertension; F17.210 Nicotine dependence, cigarettes, uncomplicated
CPT/HCPCS: 88305; J2250; J2704; J3010; J7120

== ENCOUNTER 2023-12-28 09:04 | Day surgery (SDC) | payer MEDICARE, OTHER ==
[~2023-12-28 09:04] MED LIST changes: -Bupivacaine 0.5% 30 ML SDV ONE; +Bupivacaine 0.5% 50 ML MDV ONE; -Dexamethasone 4 MG/ML SDV ONE; -Ketorolac 30 MG/ML SDV ONE; -Lactated Ringers 1,000 ML IV SCH; -Midazolam 1 MG/ML 2 ML SDV ONE; -Nozin Nasal Sanitizer NASBOTH ONE; -Ondansetron 4 MG/2 ML SDV ONE; -Propofol 200 MG/20 ML SDV ONE; -ceFAZolin 2 GM in Sodium Chloride 0.9% 50 ML IV ONE; -fentaNYL 100 MCG/2 ML SDV ONE; -traMADol 50 MG Tab PO ONE
[2023-12-28] MEDS ORDERED: fentaNYL 250 MCG/5 ML SDV ONE (09:13)
[2023-12-28] MEDS ORDERED: Dexamethasone 4 MG/ML SDV ONE (09:14)
[2023-12-28] MEDS ORDERED: Glycopyrrolate 0.2 MG/ML 5 ML MDV ONE (09:14)
[2023-12-28] MEDS ORDERED: Succinylcholine 200 MG/10 ML MDV ONE (09:14)
[2023-12-28] MEDS ORDERED: Propofol 200 MG/20 ML SDV ONE (09:14)
[2023-12-28] MEDS ORDERED: Neostigmine Methylsulfate 10 MG/10 ML MDV ONE (09:14)
[2023-12-28] MEDS ORDERED: Rocuronium 50 MG/5 ML Vial ONE (09:14)
[2023-12-28] MEDS ORDERED: Ondansetron 4 MG/2 ML SDV ONE (09:14)
[2023-12-28] MEDS ORDERED: Bupivacaine 0.5% 30 ML SDV ONE (09:16)
[2023-12-28 09:27] LABS: HEMATOCRIT 42.6 % (34.3-46.0); HEMOGLOBIN 14.3 g/dL (11.2-15.5); MEAN CORPUSCULAR HEMOGLOBIN 31.2 pg (31.6-35.5); MEAN CORPUSCULAR HGB CONC 33.6 g/dL (31.6-35.5); MEAN CORPUSCULAR VOLUME 92.8 fL (81.4-99.0); RED BLOOD CELL COUNT 4.59 M/uL (3.77-5.24)
[2023-12-28 09:46] LABS: PROTHROMBIN TIME 9.9 sec (9.2-10.6); PTT,PARTIAL THROMBOPLSTIN TIME 26.7 sec (21.8-27.3)
[2023-12-28 09:59] LABS: ALANINE AMINOTRANSFERASE,ALT 23 U/L (12-78); ALBUMIN 3.8 g/dL (3.4-5.0); ALKALINE PHOSPHATASE 71 U/L (46-116); ASPARTATE AMNIOTRANSFERASE,AST 22 U/L (15-37); BILIRUBIN TOTAL 0.5 mg/dL (0.2-1.0); BLOOD UREA NITROGEN,BUN 16 mg/dL (7-18); CALCIUM 8.6 mg/dL (8.5-10.1); CARBON DIOXIDE,CO2 31 mmol/L (21-32); CHLORIDE,CL 100 mmol/L (100-108); CREATININE 0.8 mg/dL (0.6-1.0); EST CRCL DRUG DOSING (CG) 58.12 mL/min; ESTIMATED GFR 80 mL/min (>60); GLUCOSE RANDOM 79 mg/dL (74-106); POTASSIUM,K 3.8 mmol/L (3.6-5.2); PROTEIN TOTAL,TP 7.7 g/dL (6.4-8.2); SODIUM,NA 137 mmol/L (140-148)
[2023-12-28 10:01] LABS: ANION GAP 9.8 mmol/L (5.0-14.0)
[2023-12-28] MEDS: Lactated Ringers 1,000 ML IV SCH (10:02)
[2023-12-28] MEDS: Nozin Nasal Sanitizer NASBOTH SCH ×2 (10:09→21:16)
[2023-12-28] MEDS ORDERED: Morphine 2 MG/ML SYRINGE IVPUSH PRN (10:16)
[2023-12-28] MEDS ORDERED: Ketorolac 30 MG/ML SDV IVPUSH PRN (10:16)
[2023-12-28] MEDS ORDERED: Magnesium Hydroxide 400 MG/5 ML Susp 30 ML Cup PO PRN (10:16)
[2023-12-28] MEDS ORDERED: Docusate Sodium 100 MG Cap PO PRN (10:16)
[2023-12-28] MEDS ORDERED: Gabapentin 100 MG Cap PO PRN (10:21)
[2023-12-28] MEDS ORDERED: Cetirizine 10 MG Tab PO PRN (10:28)
[2023-12-28] MEDS: ceFAZolin 2 GM in Premix Bag 1 BAG IV ONE (11:19)
[2023-12-28] MEDS: Scopalamine 1mg/3day Transdermal Patch TOP SCH (11:55)
[2023-12-28] MEDS: Tranexamic Acid 650 MG in Sodium Chloride 0.9% 50 ML IV ONE (12:50)
[2023-12-28] MEDS ORDERED: Lactated Ringers 1,000 ML ONE (13:24)
[2023-12-28] MEDS: Sodium Chloride 0.9% 1,000 ML IV SCH (15:40)
[2023-12-28] MEDS: Ondansetron 4 MG/2 ML SDV IVPUSH PRN (15:41)
[2023-12-28] MEDS: Acetaminophen 325 MG Tab PO SCH (17:27)
[2023-12-28] MEDS: traMADol 50 MG Tab PO SCH (17:27)
[2023-12-28] MEDS: ceFAZolin 1 GM in Premix Bag 1 BAG IV SCH (17:28)
[2023-12-28] MEDS ORDERED: FLUOCINONIDE TOP SCH (21:00)
[2023-12-28] MEDS ORDERED: TACROLIMUS TOP SCH (21:00)
[2023-12-28] MEDS: atorvaSTATin 20 MG Tab PO SCH (21:14)
[2023-12-28] MEDS: Triamcinolone Acetonide 0.1% Crm 15 GM Tube TOP SCH (21:15)
[2023-12-28] MEDS: ALPRAZolam 0.5 MG Tab PO PRN (23:33)
[2023-12-29] MEDS: Levothyroxine 25 MCG Tab PO SCH (07:42)
[2023-12-29] MEDS: Aspirin 325 MG Tab.EC PO SCH (08:12)
[2023-12-29] MEDS: Sertraline 50 MG Tab PO SCH (08:12)
[2023-12-29] MEDS ORDERED: TAZAROTENE TOP SCH (09:00)
[2023-12-29 11:24] VITALS: BP 123/44; PULSE 58
[2023-12-29] MEDS: Ondansetron 4 MG Tab.DIS PO PRN (12:16)
== END 2023-12-29 15:02 | disposition home or self-care (01) ==
LOC: JP.SDS 09:04 → JP.ICU 10:16 → JP.SDS 12-29 15:02
PROVIDERS: ATTEND Specialist
DX: M19.012 Primary osteoarthritis, left shoulder (principal); M75.102 Unspecified rotator cuff tear or rupture of left shoulder, not specified as traumatic; I10 Essential (primary) hypertension; E03.9 Hypothyroidism, unspecified; K21.9 Gastro-esophageal reflux disease without esophagitis; F32.A Depression, unspecified; Z88.8 Allergy status to other drugs, medicaments and biological substances
CPT/HCPCS: 23472; 36415; 73020; 80053; 85027; 85610; 85730; 93005; 93010; 97161; A9270; C1713; C1776; J0665; J0690; J1100; J2405; J2704; J2710; J3010; J3490; J7030; J7120; Q0162; J0330

== ENCOUNTER 2025-05-22 08:52 | Day surgery (SDC) | payer MEDICARE, OTHER ==
[2025-05-22] MEDS ORDERED: Midazolam 1 MG/ML 2 ML SDV ONE (09:25)
[2025-05-22] MEDS ORDERED: fentaNYL 50 MCG/ML SDV ONE (09:25)
[2025-05-22] MEDS ORDERED: Propofol 200 MG/20 ML SDV ONE (09:26)
[2025-05-22] MEDS: Lactated Ringers 1,000 ML IV SCH (09:39)
[2025-05-22 11:11] VITALS: PULSE 61
[2025-05-22 11:22] VITALS: BP 121/63
== END 2025-05-22 11:54 | disposition home or self-care (01) ==
LOC: JP.SDS 08:52
PROVIDERS: ATTEND Surgery
DX: Z12.11 Encounter for screening for malignant neoplasm of colon (principal); K63.5 Polyp of colon; K57.30 Diverticulosis of large intestine without perforation or abscess without bleeding; I10 Essential (primary) hypertension; Z88.5 Allergy status to narcotic agent; Z88.8 Allergy status to other drugs, medicaments and biological substances
CPT/HCPCS: 00811; 45380; J2250; J2704; J3010; J7120; 88305

== ENCOUNTER 2025-06-26 12:15 | Emergency (ER) | payer MEDICARE, OTHER ==
[2025-06-26 13:23] LABS: BASOPHILS ABSOLUTE AUTO 0.03 K/uL (0.00-0.10); BASOPHILS PERCENT AUTO 0.6 % (0.1-1.3); EOSINOPHILS ABSOLUTE AUTO 0.10 K/uL (0.00-0.40); EOSINOPHILS PERCENT AUTO 2.0 % (0.0-5.4); IMMATURE GRAN ABSOLUTE AUTO 0.01 K/uL (0.00-0.23); IMMATURE GRAN PERCENT AUTO 0.2 % (0.0-0.7); LYMPHOCYTES ABSOLUTE AUTO 1.51 K/uL (0.8-3.3); LYMPHOCYTES PERCENT AUTO 30.3 % (11.4-47.7); MONOCYTES ABSOLUTE AUTO 0.42 K/uL (0.20-0.90); MONOCYTES PERCENT AUTO 8.4 % (3.3-12.6); NEUTROPHILS ABSOLUTE AUTO 2.91 K/uL (1.0-7.6); NEUTROPHILS PERCENT AUTO 58.5 % (40.0-78.1); PLATELET COUNT,PLT 310 K/uL (130-375); RED BLOOD CELL COUNT 4.20 M/uL (3.77-5.24); WHITE BLOOD CELL COUNT,WBC 5.0 K/uL (3.2-11.0)
[2025-06-26] MEDS ORDERED: Naloxone 0.4 MG/ML SDV IVPUSH PRN (13:33)
[2025-06-26] MEDS: Ondansetron 4 MG/2 ML SDV IVPUSH ONE (13:35)
[2025-06-26 13:39] LABS: INR 1.0
[2025-06-26 13:44] LABS: A/G RATIO 1.2 (1.2-2.2); ALANINE AMINOTRANSFERASE,ALT 21 U/L (12-78); ASPARTATE AMNIOTRANSFERASE,AST 21 U/L (15-37); BILIRUBIN TOTAL 0.3 mg/dL (0.2-1.0); BLOOD UREA NITROGEN,BUN 10 mg/dL (7-18); CARBON DIOXIDE,CO2 32 mmol/L (21-32); CHLORIDE,CL 102 mmol/L (100-108); CREATININE 0.7 mg/dL (0.6-1.0); EST CRCL DRUG DOSING (CG) 64.58 mL/min; ESTIMATED GFR 93 mL/min (>60); GLUCOSE RANDOM 101 mg/dL (74-106); POTASSIUM,K 4.5 mmol/L (3.6-5.2); PROTEIN TOTAL,TP 6.9 g/dL (6.4-8.2); SODIUM,NA 138 mmol/L (140-148); TROPONIN I HIGH SENSITIVITY 11.4 pg/mL (<=60.3)
[2025-06-26 13:52] LABS: APPEARANCE,URINE CLEAR (CLEAR); GLUCOSE,URINE NEGATIVE (NEGATIVE); OCCULT BLOOD,URINE TRACE-INTACT (NEGATIVE)
[2025-06-26 13:59] LABS: SQUAMOUS EPITHELIAL CELLS,UR NOT SEEN /HPF; UROTHELIAL CELLS,URINE NOT SEEN /HPF
[2025-06-26] MEDS: Iopamidol 612 MG/ML 100 ML Bottle IV SCH (15:23)
[2025-06-26] MEDS: Sodium Chloride 0.9% 10 ML Syringe FLUSH ONE (15:23)
[2025-06-26 16:20] VITALS: BP 137/69; PULSE 60
== END 2025-06-26 16:40 | disposition home or self-care (01) ==
LOC: JP.ED 12:15
DX: R10.32 Left lower quadrant pain (principal); E86.0 Dehydration; E78.00 Pure hypercholesterolemia, unspecified; K21.9 Gastro-esophageal reflux disease without esophagitis; E03.9 Hypothyroidism, unspecified; Z86.16 Personal history of COVID-19; Z88.5 Allergy status to narcotic agent; Z88.8 Allergy status to other drugs, medicaments and biological substances; Z79.890 Hormone replacement therapy; Z79.899 Other long term (current) drug therapy
CPT/HCPCS: 36415; 74177; 80053; 81001; 83605; 84484; 85025; 85610; 86140; 93005; 96361; 96374; 99284; J2405; J7030; Q9967; 93010

== ENCOUNTER 2025-07-06 06:18 | Day surgery (SDC) | payer MEDICARE, OTHER ==
[2025-07-06] MEDS: Lactated Ringers 1,000 ML IV SCH (06:50)
[2025-07-06] MEDS ORDERED: fentaNYL 50 MCG/ML SDV ONE (07:08)
[2025-07-06] MEDS ORDERED: Propofol 200 MG/20 ML SDV ONE (07:08)
[2025-07-06 08:54] VITALS: PULSE 57
[2025-07-06 09:10] VITALS: BP 126/59
== END 2025-07-06 09:21 | disposition home or self-care (01) ==
LOC: JP.SDS 06:18
PROVIDERS: ATTEND Surgery
DX: R10.13 Epigastric pain (principal); R10.12 Left upper quadrant pain; R11.0 Nausea; K21.9 Gastro-esophageal reflux disease without esophagitis; E78.00 Pure hypercholesterolemia, unspecified; E03.9 Hypothyroidism, unspecified; F17.210 Nicotine dependence, cigarettes, uncomplicated; Z88.5 Allergy status to narcotic agent; Z88.8 Allergy status to other drugs, medicaments and biological substances; Z79.899 Other long term (current) drug therapy; Z79.890 Hormone replacement therapy
CPT/HCPCS: 43235; J2704; J3010; J7120

== ENCOUNTER 2025-07-07 06:18 | Day surgery (SDC) | payer MEDICARE, OTHER ==
[2025-07-07] MEDS: Lactated Ringers 1,000 ML IV SCH (07:08)
[2025-07-07] MEDS ORDERED: fentaNYL 250 MCG/5 ML SDV ONE (07:18)
[2025-07-07] MEDS ORDERED: Dexamethasone 4 MG/ML SDV ONE (07:19)
[2025-07-07] MEDS ORDERED: Propofol 200 MG/20 ML SDV ONE (07:19)
[2025-07-07] MEDS ORDERED: Ondansetron 4 MG/2 ML SDV ONE (07:19)
[2025-07-07] MEDS: Scopalamine 1mg/3day Transdermal Patch TOP SCH (07:23)
[2025-07-07] MEDS ORDERED: diphenhydrAMINE 50 MG/ML SDV ONE (07:30)
[2025-07-07 08:35] VITALS: BP 138/67; PULSE 70
== END 2025-07-07 09:04 | disposition home or self-care (01) ==
LOC: JP.SDS 06:18
PROVIDERS: ATTEND Surgery
DX: R10.13 Epigastric pain (principal); R10.12 Left upper quadrant pain; E78.00 Pure hypercholesterolemia, unspecified; E03.9 Hypothyroidism, unspecified; K21.9 Gastro-esophageal reflux disease without esophagitis; F17.210 Nicotine dependence, cigarettes, uncomplicated; Z53.8 Procedure and treatment not carried out for other reasons; Z88.5 Allergy status to narcotic agent; Z88.8 Allergy status to other drugs, medicaments and biological substances; Z79.899 Other long term (current) drug therapy; Z79.890 Hormone replacement therapy
CPT/HCPCS: 76000; 93005; A9270; J0690; J1200; J2405; J3010; J7120; J1100; J2704; J3490

== ENCOUNTER 2025-07-13 06:29 | Day surgery (SDC) | payer MEDICARE, OTHER ==
[2025-07-13] MEDS ORDERED: Bupivacaine 0.25%/EPINEPHrine 1:200,000 30 ML SDV ONE (06:40)
[2025-07-13 07:00] LABS: PLATELET COUNT,PLT 326.0 K/uL (130-375); RED BLOOD CELL COUNT 4.61 M/uL (3.77-5.24); WHITE BLOOD CELL COUNT,WBC 6.4 K/uL (3.2-11.0)
[2025-07-13] MEDS: Lactated Ringers 1,000 ML IV SCH (07:04)
[2025-07-13] MEDS: Indocyanine Green 25 MG SDV IV ONE (07:08)
[2025-07-13] MEDS ORDERED: Glycopyrrolate 0.2 MG/ML 5 ML MDV ONE (07:15)
[2025-07-13] MEDS ORDERED: Dexamethasone 4 MG/ML SDV ONE (07:15)
[2025-07-13] MEDS ORDERED: Succinylcholine 200 MG/10 ML MDV ONE (07:15)
[2025-07-13] MEDS ORDERED: Propofol 200 MG/20 ML SDV ONE (07:15)
[2025-07-13] MEDS ORDERED: Ondansetron 4 MG/2 ML SDV ONE (07:15)
[2025-07-13] MEDS ORDERED: fentaNYL 250 MCG/5 ML SDV ONE (07:16)
[2025-07-13] MEDS: Clindamycin in 0.9 % Sod Chlor 600 MG in Premix Bag 1 BAG IV ONE (07:21)
[2025-07-13 07:24] LABS: A/G RATIO 1.1 (1.2-2.2); ALANINE AMINOTRANSFERASE,ALT 20 U/L (12-78); ASPARTATE AMNIOTRANSFERASE,AST 21 U/L (15-37); BILIRUBIN TOTAL 0.4 mg/dL (0.2-1.0); BLOOD UREA NITROGEN,BUN 10 mg/dL (7-18); CARBON DIOXIDE,CO2 34 mmol/L (21-32); CHLORIDE,CL 103 mmol/L (100-108); CREATININE 0.6 mg/dL (0.6-1.0); EST CRCL DRUG DOSING (CG) 75.34 mL/min; ESTIMATED GFR 97 mL/min (>60); GLUCOSE RANDOM 85 mg/dL (74-106); POTASSIUM,K 4.0 mmol/L (3.6-5.2); PROTEIN TOTAL,TP 7.6 g/dL (6.4-8.2); SODIUM,NA 141 mmol/L (140-148)
[2025-07-13] MEDS: metroNIDAZOLE/Normal Saline 500 MG in Premix Bag 1 BAG IV ONE (07:40)
[2025-07-13] MEDS ORDERED: Lactated Ringers 1,000 ML ONE (08:07)
[2025-07-13] MEDS: Bupivacaine 0.25%/EPINEPHrine 1:200,000 30 ML SDV ONE (08:16)
[2025-07-13] MEDS ORDERED: fentaNYL 100 MCG/2 ML SDV ONE (08:22)
[2025-07-13] MEDS: Ondansetron 4 MG/2 ML SDV IVPUSH ONE (08:54)
[2025-07-13] MEDS: Acetaminophen/HYDROcodone 325-5 MG Tab PO ONE (10:09)
[2025-07-13] MEDS: Scopalamine 1mg/3day Transdermal Patch TOP ONE (10:27)
[2025-07-13 12:37] VITALS: BP 122/58; PULSE 63
== END 2025-07-13 13:21 | disposition home or self-care (01) ==
LOC: JP.SDS 06:29
PROVIDERS: ATTEND Surgery
DX: K81.1 Chronic cholecystitis (principal); K76.89 Other specified diseases of liver; E78.00 Pure hypercholesterolemia, unspecified; E03.9 Hypothyroidism, unspecified; I10 Essential (primary) hypertension; F17.210 Nicotine dependence, cigarettes, uncomplicated; Z88.5 Allergy status to narcotic agent; Z88.8 Allergy status to other drugs, medicaments and biological substances; Z79.899 Other long term (current) drug therapy; Z79.890 Hormone replacement therapy
CPT/HCPCS: 00790; 36415; 47563; 80053; 85027; 88304; A4216; A9270; J0169; J0330; J0737; J1100; J1596; J1836; J2405; J2704; J2710; J2765; J2795; J3010; J7120; J3490